=== PATIENT | male | born 1960 | race Caucasian/White ===

== ENCOUNTER 2018-01-01 21:34 | Emergency (ER) | payer OTHER, MEDICAID ==
[2018-01-01] MEDS ORDERED: NS 500 ML IV ONE (21:38)
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
[2018-01-01] MEDS ORDERED: IOPAMIDOL (ISOVUE-300) 100 ML BTL ONE (21:58)
[2018-01-01] MEDS ORDERED: AMOXICILLIN/CLAVULANATE POT 875/125 MG TAB PO ONE (22:36)
[2018-01-01 23:14] VITALS: BP 133/88
== END 2018-01-01 23:21 ==
LOC: EDUNIT# → EDBD
DX: S61.452A Open bite of left hand, initial encounter (principal); F10.129 Alcohol abuse with intoxication, unspecified; E86.9 Volume depletion, unspecified; F17.200 Nicotine dependence, unspecified, uncomplicated; V89.2XXA Person injured in unspecified motor-vehicle accident, traffic, initial encounter; W54.0XXA Bitten by dog, initial encounter
CPT/HCPCS: 82947-QW; G0480; L0172; Q9967